=== PATIENT | female | born 1945 ===

== ENCOUNTER 2019-05-01 16:52 | Outpatient (CLI) | payer MEDICARE, OTHER | END 2019-05-01 16:53 | disposition short-term general hospital (02) | LOC: EMS 16:52 | PROVIDERS: ATTEND Surgery | DX: M25.552 Pain in left hip (principal); Z96.642 Presence of left artificial hip joint | CPT/HCPCS: A0425; A0427 ==

== ENCOUNTER 2020-12-16 18:43 | Outpatient (CLI) | payer MEDICARE, OTHER | END 2020-12-16 23:59 | disposition short-term general hospital (02) | LOC: EMS 18:43 | DX: M79.605 Pain in left leg (principal) | CPT/HCPCS: A0425; A0427 ==